=== PATIENT | female | born 2000 | race Caucasian/White ===

== ENCOUNTER 2025-01-22 04:00 | Emergency (ER) | payer OTHER ==
[~2025-01-22] VITALS: Ht 167.6 cm; Wt 82.0 kg
[2025-01-22 04:04] VITALS: O2SAT 99
[2025-01-22 06:37] LABS: BASOPHILS % 0.8 % (0.0-2.0); EOSINOPHILS % 2.2 % (0.0-5.0); HEMATOCRIT. 40.3 % (36.0-48.0); HEMOGLOBIN. 13.1 g/dL (12.0-16.0); LYMPHOCYTES % 26.1 % (20.0-50.0); MEAN PLATELET VOLUME 8.6 fl (7.4-10.4); MONOCYTES % 6.5 % (2.0-8.0); NEUTROPHILS % 64.4 % (40.0-76.0); PLATELET 364 x1000/uL (130-400); RED BLOOD CELL COUNT 5.07 mill/uL (4.2-5.4); RED CELL DISTRIBUTION WIDTH 15.0 % (11.6-14.6)
[2025-01-22 06:48] LABS: TROPONIN I HIGH SENSITIVITY < 4 ng/L (3.0-34)
[2025-01-22 07:08] LABS: CREATININE 0.8 mg/dL (0.6-1.0)
[2025-01-22 07:09] LABS: UREA NITROGEN BLOOD 6 mg/dL (9-23)
[2025-01-22 07:25] LABS: HCG SCREEN NEGATIVE
[2025-01-22 08:17] VITALS: BP 112/70; PULSE 83; RESP 16; TEMP 36.7; O2SAT 99
== END 2025-01-22 08:25 | disposition home or self-care (01) ==
LOC: ER 04:00
DX: R07.89 Other chest pain (principal); R00.2 Palpitations; I10 Essential (primary) hypertension; F41.9 Anxiety disorder, unspecified
CPT/HCPCS: 36415; 71045; 80048; 84484; 84703; 85025; 85379; 93005; 99291